=== PATIENT | male | born 1980 | race Caucasian/White ===

== ENCOUNTER 2024-07-06 14:05 | Day surgery (SDC) | payer MEDICARE ==
[2024-07-06] MEDS ORDERED: LIDOCAINE HCL 1% 50 MG/5 ML VL PF IJ ONE (14:06)
[2024-07-06] MEDS ORDERED: BUPIVACAINE 0.5% VIAL IJ ONE (14:06)
[2024-07-06] MEDS ORDERED: Depo-Medrol 40 MG/ML IM ONE (14:06)
--- NOTE | 2024-07-06 20:12 | XRAY ---
Indication: Bilateral greater trochanter bursa injection Intraoperative fluoroscopy provided for 31 seconds. 2 digital spot image submitted for interpretation demonstrates needle tips projecting lateral to the left/right greater trochanters. Small amount of contrast injected for both needle tip placement. Correlate with intraoperative findings/report.
--- NOTE | 2024-07-07 21:05 | XRAY ---
31 seconds of fluoroscopy was used in surgery for a bilateral greater trochanteric bursa injection.
== END 2024-07-06 17:48 | disposition home or self-care (01) ==
LOC: SDC-PAIN 14:05
PROVIDERS: ATTEND Psychiatry & Neurology Pain Medicine
DX: M70.62 Trochanteric bursitis, left hip (principal); M70.61 Trochanteric bursitis, right hip; E10.9 Type 1 diabetes mellitus without complications
CPT/HCPCS: 20610; 73521; 77002; 82947; J2001; Q9966